=== PATIENT | female | born 1955 | race African-American/Black ===

== ENCOUNTER 2017-10-26 05:35 | Inpatient (IN) | payer OTHER ==
[2017-10-13 11:19] LABS: APPEARANCE,URINE CLOUDY; BILIRUBIN, URINE NEGATIVE (NEGATIVE); GLUCOSE, URINE (UA) NEGATIVE (NEGATIVE); KETONES,URINE NEGATIVE (NEGATIVE); LEUKOCYTE ESTERASE ,URINE 1+ (NEGATIVE); NITRITE,URINE NEGATIVE (NEGATIVE); PH,URINE 6.5 (4.5-8.0); PROTEIN,URINE NEGATIVE (NEGATIVE); UROBILINOGEN,URINE 1 MG/DL (0.0-1.0)
[2017-10-13 11:19] LABS: BASOPHILS % (AUTO) 0.8 % (0.0-2.0); HEMATOCRIT 44.2 % (37.0-47.0); LYMPHOCYTES % (AUTO) 50.4 % (20.0-45.0); MEAN CORPUSCULAR VOLUME 95 FL (80-99); MONOCYTES % (AUTO) 8.1 % (1.0-10.0); NEUTROPHILS % (AUTO) 38.8 % (45.0-75.0); PLATELET COUNT 377 K/UL (150-450); RED BLOOD COUNT 4.68 M/UL (4.20-5.40); RED CELL DISTRIBUTION WIDTH 13.1 % (11.6-14.8); WHITE BLOOD COUNT 5.5 K/UL (4.8-10.8)
[2017-10-13 11:20] LABS: COLOR,URINE YELLOW
[2017-10-13 11:33] LABS: INR 0.9 (0.9-1.1)
[2017-10-13 12:03] LABS: ALANINE AMINOTRANSFERASE 51 U/L (12-78); ALBUMIN 3.6 G/DL (3.4-5.0); ALBUMIN/GLOBULIN RATIO 0.9 (1.0-2.7); ALKALINE PHOSPHATASE 116 U/L (46-116); ANION GAP 7 mmol/L (5-15); ASPARTATE AMINO TRANSFERASE 35 U/L (15-37); BILIRUBIN,TOTAL 0.3 MG/DL (0.2-1.0); BLOOD UREA NITROGEN 10 mg/dL (7-18); CALCIUM 9.2 MG/DL (8.5-10.1); CARBON DIOXIDE 29 MMOL/L (21-32); CHLORIDE 104 MMOL/L (98-107); CREATININE 0.9 MG/DL (0.55-1.30); POTASSIUM 4.4 MMOL/L (3.5-5.1); SODIUM 140 MMOL/L (136-145)
--- NOTE | 2017-10-13 16:40 | Diagnostic Imaging Report ---
Indication: Dyspnea Comparison: None 2 views of the chest obtained. Findings: Cardiomediastinal silhouette and pulmonary vascularity are within normal limits for age. The diaphragmatic contour is smooth and costophrenic angles are sharp. No pleural effusions are identified. The bones are osteopenic. Impression: No acute disease
[2017-10-26] VITALS (18 sets, daily range): BP systolic 135–164; BP diastolic 76–98
[~2017-10-26] VITALS: Ht 180.3 cm; Wt 113.4 kg
[~2017-10-26 05:35] MED LIST: CLONIDINE HCL0.1 MG PO; CYCLOBENZAPRINE10 MG ORAL; FUROSEMIDE20 M1 ORAL; LEVOBUNOLOL HCL5 M1 BOTH EYES; LUMIGAN2.5 ML BOTH EYES; NORCO 10-325 T1 EACH ORAL; TRUSOPT10 ML BOTH EYES; Vit D PO
[2017-10-26] MEDS ORDERED: ceFAZolin sod 2 GM in D5W 110 ML IVPB ONE (07:00)
[2017-10-26] MEDS ORDERED: Thrombin 5000 units TOPIC ONE (07:01)
[2017-10-26] MEDS ORDERED: Vancomycin 1gm inj IVPB ONE (07:02)
[2017-10-26] MEDS ORDERED: Lidocaine 1% 10mg/ml/EPI 0.01mg/ml 50ml INJ ONE (07:03)
[2017-10-26] MEDS ORDERED: Bupivacaine 0.5% Inj 30 ml vial INJ ONE (07:03)
[2017-10-26] MEDS ORDERED: Thrombin 5000 units spray kit TOPIC ONE ×2 (07:04→10:46)
[2017-10-26] MEDS ORDERED: Gelfoam Absorbable 1gm powder pkt TOPIC ONE ×2 (07:04→10:46)
[2017-10-26] MEDS ORDERED: Bacitracin 50000 Units Vial ONE (07:04)
[2017-10-26] MEDS ORDERED: LR 1000ml 1,000 ML IVLG SCH (07:09)
--- NOTE | 2017-10-26 07:11 | Anethesia Preoperative Eval ---
Anesthesia Pre-op PMH/ROS General Date of Evaluation: Oct 26, 2017 Time of Evaluation: 08:01 Anesthesiologist: Graham ASA Score: ASA 3 Mallampati Score Class I : Soft palate, uvula, fauces, pillars visible Class II: Soft palate, uvula, fauces visible Class III: Soft palate, base of uvula visible Class IV: Only hard plate visible Mallampati Classification: Class III Surgeon: Wilbur Diagnosis: Back Pain Surgical Procedure: Posterior L3-S1 Lamiotomy, Foraminotomy Anesthesia History: none Social History: current smoker Family History: no anesthesia problems Allergies: Coded Allergies: DOXYCYCLINE (Verified Allergy, Intermediate, hives, 10/25/17) PENICILLINS (Verified Allergy, Intermediate, hives; ringing of the ears, ) Medications: see eMAR Past Medical History Cardiovascular: Reports: HTN, other - HL Gastrointestinal/Genitourinary: Reports: other - Hemorrhoids HEENT: Reports: glaucoma Other: obesity - BMI 37 PSxH Narrative: C/S X4 Anesthesia Pre-op Phys. Exam Physician Exam Last Vital Signs Date Time Temp Pulse Resp B/P (MAP) Pulse Ox O2 Delivery O2 Flow Rate FiO2 10/26/17 05:59 98.9 90 20 144/90 98 Room Air Constitutional: NAD Neurologic: CN 2-12 intact Cardiovascular: RRR Respiratory: CTA Gastrointestinal: S/NT/ND Airway Exam Mallampati Score: Class III MO: limited ROM: full Teeth: intact Anesthesia Pre-op A/P Risk Assessment & Plan Assessment: ASA 3 Plan: GA, BIS, GlideScope Go Status Change Before Surgery: No Pre-Antibiotics Dru Grams Ancef IV Given Within 1 Hr of Incision: Yes Time Given: 08:21 Zaheer Stevenson MD Oct 26, 2017 07:11
[2017-10-26] MEDS ORDERED: LORazepam Inj 2mg/ml 1ml IV PRN (07:15)
[2017-10-26] MEDS ORDERED: Ketorolac 30mg Inj IV PRN (07:15)
[2017-10-26] MEDS ORDERED: Labetalol 5mg/ml 20ml vial IV PRN (07:15)
[2017-10-26] MEDS ORDERED: Norco 5mg/325mg tab ORAL PRN ×2 (07:15→08:45)
[2017-10-26] MEDS ORDERED: Midazolam 2mg/2ml Inj IVP PRN (07:15)
[2017-10-26] MEDS ORDERED: DiphenhydrAMINE 50mg/ml Inj IVP PRN (07:15)
[2017-10-26] MEDS ORDERED: HYDROcodone/Acetamin 7.5/325 tab ORAL PRN ×3 (07:15→08:45)
[2017-10-26] MEDS ORDERED: Ketorolac 60mg Inj IV PRN (07:15)
[2017-10-26] MEDS ORDERED: Hydromorphone 0.5mg/0.5ml inj IVP PRN (07:15)
[2017-10-26] MEDS ORDERED: fentaNYL 100 mcg/2 mL IV PRN (07:15)
[2017-10-26] MEDS ORDERED: Atropine Inj 1mg/10ml Syr IV PRN (07:15)
[2017-10-26] MEDS ORDERED: oxyCODONE HCL/Acetaminophen 5/325mg ORAL PRN (07:15)
[2017-10-26] MEDS ORDERED: Sodium Chloride 10ml vial INJ ONE (08:00)
[2017-10-26] MEDS ORDERED: Midazolam 2mg/2ml Inj ONE (08:00)
[2017-10-26] MEDS ORDERED: Zemuron 50mg/5ml Inj IV ONE (08:00)
[2017-10-26] MEDS ORDERED: Sterile Water For Irrig 2000ml IRRIG ONE (08:00)
[2017-10-26] MEDS ORDERED: Lidocaine 1% MPF 10mg/ml 5ml ONE (08:00)
[2017-10-26] MEDS ORDERED: Propofol 1,000mg/ 100ml btl IV ONE (08:00)
[2017-10-26] MEDS ORDERED: Acetaminophen (Non formulary) 100 ML IV ONE (08:00)
[2017-10-26] MEDS ORDERED: NS Irrig 1000ml ONE (08:00)
[2017-10-26] MEDS ORDERED: Dexamethasone 4mg/ml vial ONE (08:00)
[2017-10-26] MEDS ORDERED: LR 1000ml ONE (08:00)
--- NOTE | 2017-10-26 08:34 | Pre-Procedure Note/Attestation ---
Pre-Procedure Note/Attestation Complete Prior to Procedure Procedure Narrative: L3-S1 laminoforaminotomies Indications for Procedure Pre-Operative Diagnosis: L3-S1 stenosis Attestation I attest that I discussed the nature of the procedure; its benefits; risks and complications; and alternatives (and the risks and benefits of such alternatives ), prior to the procedure, with the patient (or the patient's legal personal banking representative). I attest that, if there was a reasonable possibility of needing a blood transfusion, the patient (or the patient's legal personal banking representative) was given the [facility] standardized written summary, pursuant to the James Celestino Blood Safety Act ([place] Health and Safety Code # 1645, as amended). I attest that I re-evaluated the patient just prior to the surgery and that there has been no change in the patient's H&P, except as documented below: EMANUEL MOSQUERA Oct 26, 2017 08:34
--- NOTE | 2017-10-26 08:36 | Brief Operative Note ---
Immediate Post Operative Note Operative Note Pre-op Diagnosis: L3-S1 stenosis Procedure: L3-S1 laminoforaminotomy Post-op Diagnosis: same as pre-op Findings: consistent w/pre-op dx studies Surgeon: sofiya Baggagemaster: damion MANNING Anesthesiologist: Zaheer Soria Anesthesia: general Specimen: yes - lamina Complications: none Condition: stable Fluids: 1L LR Estimated Blood Loss: volume - 150 Drains: hemovac Implant(s) used?: No EMANUEL MOSQUERA Oct 26, 2017 08:36
[2017-10-26] MEDS ORDERED: traMADol 50mg tab ORAL PRN (08:45)
[2017-10-26] MEDS ORDERED: Milk of Magnesia 30ml Ud ORAL PRN (08:45)
[2017-10-26] MEDS ORDERED: HYDROmorphone 1mg/ml Carpuject SUBQ PRN (08:45)
[2017-10-26] MEDS ORDERED: Naloxone 0.4mg/ml Inj IVP PRN (08:45)
--- NOTE | 2017-10-26 09:23 | Immediate Post-Op Evaluation ---
Immediate Post-Op Evalulation Immediate Post-Op Evalulation Procedure: Posterior L3-S1 Lamiotomy, Foraminotomy Date of Evaluation: Oct 26, 2017 Time of Evaluation: 11:58 IV Fluids: 1000 LR Blood Products: 0 Estimated Blood Loss: 150 Urinary Output: 250 Blood Pressure Systolic: 155 Blood Pressure Diastolic: 96 Pulse Rate: 92 Respiratory Rate: 16 O2 Sat by Pulse Oximetry: 100 Temperature (Fahrenheit): 97.2 Pain Score (1-10): 3 Nausea: No Vomiting: No Complications 0 Patient Status: awake, reacts, patent, extubated, none Hydration Status: adequate Dru Grams Ancef IV Given Within 1 Hr of Incision: Yes Time Given: 08:21 Zaheer Stevenson MD Oct 26, 2017 09:23
--- NOTE | 2017-10-26 10:52 | Diagnostic Imaging Report ---
Indication: Back pain Technique: Intraoperative images Comparison: none Findings: Single lateral localizer image demonstrates surgical tool posterior to what is presumably the L4-5 disc Impression: Intraoperative imaging, as described
[2017-10-26] MEDS: D5 1/2NS 1,000 ML IV SCH (15:44)
[2017-10-26] MEDS: ceFAZolin sod 1 GM in D5W 55 ML IV SCH (17:39)
[2017-10-26] MEDS ORDERED: HYDROcodone/Acetamin 10/325 tab ORAL PRN (18:00)
[2017-10-26] MEDS ORDERED: Docusate 100mg cap ORAL SCH (18:00)
[2017-10-26] MEDS ORDERED: Chloraseptic Spray 20mL Bottle ORAL PRN (18:00)
[2017-10-26] MEDS ORDERED: HYDROcodone/Acetamin 10/325 tab ORAL ONE (19:00)
[2017-10-26] MEDS: Docusate 100mg/10ml Liq NG SCH (20:10)
[2017-10-26] MEDS: Latanoprost 0.005% Opth 2.5ml Soln BOTH EYES SCH (21:07)
[2017-10-27] MEDS: ceFAZolin sod 1 GM in D5W 55 ML IV SCH ×2 (00:04→08:11)
[2017-10-27] MEDS: D5 1/2NS 1,000 ML IV SCH ×3 (00:04→19:33)
[2017-10-27] MEDS: HYDROcodone/Acetamin 10/325 tab ORAL PRN (00:22)
[2017-10-27 00:56] VITALS: BP 143/84
[2017-10-27 04:33] VITALS: BP 136/73
[2017-10-27 08:00] VITALS: BP 118/67
[2017-10-27] MEDS: HYDROmorphone 1mg/ml Carpuject SUBQ PRN ×3 (08:17→19:39)
--- NOTE | 2017-10-27 08:57 | Orthopedic Spine Progress Note ---
Ortho Spine - Progress Note Subjective Symptoms: c/o post-op back pain, improved - as compared to pre-op Objective Vital Signs: Last 24 Hour Vital Signs Date Time Temp Pulse Resp B/P (MAP) Pulse Ox O2 Delivery O2 Flow Rate FiO2 10/27/17 08:00 97.8 87 18 118/67 98 10/27/17 05:28 83 19 99 Nasal 35 10/27/17 04:33 98.2 89 20 136/73 98 Room Air 10/27/17 03:28 72 22 100 Nasal 35 10/27/17 01:28 86 16 98 Nasal 35 10/27/17 00:56 97.1 81 20 143/84 98 10/26/17 23:11 74 14 99 Nasal 35 10/26/17 21:45 78 12 100 Nasal 35 10/26/17 20:00 96.6 86 19 152/92 97 10/26/17 17:00 98.0 81 20 138/76 98 10/26/17 15:00 97.7 82 18 135/88 99 Room Air 10/26/17 14:05 97.0 89 17 159/95 97 Room Air 10/26/17 13:34 98.3 10/26/17 13:25 98.3 85 13 145/93 100 Nasal Cannula 3.0 10/26/17 13:10 90 23 153/90 100 Nasal Cannula 3.0 10/26/17 13:00 89 18 135/92 100 Nasal Cannula 3.0 10/26/17 12:50 90 14 135/92 100 Simple Mask 6.0 10/26/17 12:40 93 16 146/84 100 Simple Mask 6.0 10/26/17 12:35 91 14 164/78 100 Simple Mask 6.0 10/26/17 12:25 92 19 145/81 100 Simple Mask 6.0 10/26/17 12:15 91 13 147/86 100 Simple Mask 6.0 10/26/17 12:05 92 15 157/92 100 Simple Mask 6.0 10/26/17 11:57 96 18 162/98 100 Simple Mask 6.0 10/26/17 11:52 97 20 153/91 100 Simple Mask 6.0 10/26/17 11:47 97.2 91 20 155/96 100 Simple Mask 6.0 10/26/17 11:46 92 16 100 I&O: Intake and Output 10/26/17 10/27/17 19:00 07:00 Intake Total 2100 ml 2440 ml Output Total 650 ml Balance 1450 ml 2440 ml Intake Oral 600 ml 1440 ml IV Total 1500 ml 1000 ml Output Urine Total 500 ml Estimated Blood Loss 150 ml # Voids 1 4 Wound: clean Drains: hemovac Neuro Status: normal Assessment Procedure Performed: L3-S1 laminoforaminotomy Plan Plan: PT, pain management, d/c drain, discharge plan EMANUEL MOSQUERA Oct 27, 2017 08:57
--- NOTE | 2017-10-27 09:14 | 48 Hour Post Anesthesia Eval ---
Post Anesthesia Evaluation Procedure: Posterior L3-S1 Lamiotomy, Foraminotomy Date of Evaluation: Oct 27, 2017 Time of Evaluation: 06:28 Blood Pressure Systolic: 118 0: 67 Pulse Rate: 87 Respiratory Rate: 18 Temperature (Fahrenheit): 97.8 O2 Sat by Pulse Oximetry: 98 Airway: patent Nausea: No Vomiting: No Pain Intensity: 2 Hydration Status: adequate Cardiopulmonary Status: Stable Mental Status/LOC: patient returned to baseline Follow-up Care/Observations: 0 Post-Anesthesia Complications: 0 Follow-up care needed: N/A Zaheer Stevenson MD Oct 27, 2017 09:14
[2017-10-27] MEDS: Docusate 100mg/10ml Liq NG SCH ×2 (09:23→17:13)
[2017-10-27 12:00] VITALS: BP 135/77
[2017-10-27 16:00] VITALS: BP 120/70
[2017-10-27] MEDS ORDERED: HYDROcodone/Acetamin 10/325 tab ORAL ONE (17:00)
[2017-10-27 20:00] VITALS: BP 154/83
[2017-10-27] MEDS: Latanoprost 0.005% Opth 2.5ml Soln BOTH EYES SCH (20:46)
--- NOTE | 2017-10-27 22:15 | Operative Note - Dictated ---
DATE OF OPERATION: 10/26/2017 SURGEON: Gene Bowles M.D. OYSTER FARMER: Rod Neal PA-C. ANESTHESIOLOGIST: Zaheer Stevenson M.D. ANESTHESIA TYPE: General endotracheal anesthesia. PREOPERATIVE DIAGNOSES: Spinal stenosis at L4-L5 primarily, but secondarily at L3-L4 and bilaterally along the neural foramen L5-S1. OPERATION PERFORMED: 1. Complete central laminectomy with bilateral laminectomies and medial facetectomies at L3, L4, and superior portion of L5, as well as bilateral hemilaminotomy at L5-S1 with medial facetectomy, and superior S1 resection. 2. Use of fluoroscopy. 3. Neurolysis bilaterally at L5-S1. 4. Use of operating microscope. 5. Neurodiagnostic monitoring. 6. Use of fluoroscopy for localization purposes. ESTIMATED BLOOD LOSS: 150 mL. FLUIDS: One liter. COMPLICATIONS: None. FINDINGS: Extensive epidural lipomatosis at L4-L5 and to a lesser extent L3-L4 with severe bony stenosis at L5-S1. INDICATIONS: The patient is a very pleasant woman, who I have been managing for quite some time conservatively. Her pain has finally gone to the point that she can no longer tolerate with bilateral radiculopathic findings. MRI confirmed [id number] spinal stenosis at L4-L5 and to a lesser extent at L3-L4 as well as bilateral foraminal stenosis at L5-S1. After having failed conservative care, surgical intervention was recommended and she elected to proceed with surgery. RISKS NOTES: The patient was explained in detail risks and benefits of surgery to include, but not be limited to those of bleeding, damage to nerves, vessels, tendons, anesthetic risk, allergic reaction, aspiration, and possibly . The patient elected to proceed. OPERATIVE PROCEDURE IN DETAIL: The patient was taken to the operating suite. After general endotracheal anesthesia was obtained, Kendrick catheter was placed. The back was prepped and draped in the usual sterile fashion after she was turned prone onto a radiolucent table. All bony prominences were well padded. A midline incision was carried out from L3 through S1. Subperiosteal dissection was carried out. The L4-L5 level was once again reconfirmed fluoroscopically. At this point, with the use of a rongeur, a midline laminectomy was performed by resecting the spinous processes of L3 and L4 as well as leading edge of L5. At this point, under microscopic visualization, hemilaminectomies were performed at L4 bilaterally, L3 bilaterally, as well as the superior portion of L5. This was performed using standard technique by drilling out the lamina with high-speed drill as well as use of Kerrison rongeurs, as well as pituitaries and curettes. A wide and radical decompression was performed from pedicle to pedicle from L3, L4, and L5. At this point, copious irrigation was obtained. FloSeal was applied and this area was packed off. Attention was then turned to the L5-S1 level and then a left-sided hemilaminectomy of L5 and superior portion of S1 as well as medial facetectomy was performed in the similar fashion using high-speed drill, curettes, Kerrison, and rongeurs. A 50% medial facetectomy was performed on the left side. The leading edge of the superior articular process was also resected. Neuroforamen was probed and noted to be patent at this point. Copious irrigation was performed. This procedure was then identically reproduced on the right side at L5-S1. Once satisfied with the decompression at L3, L4, L5, and S1 neuroforamen, decision was made to close. FloSeal was applied to all bony edges as well as bone wax. Meticulous hemostasis was achieved at this juncture. Decision was made to close. Fascia was repaired using #1 Vicryl and subcutaneous closure using 2-0 Vicryl. Dermabond and sterile dressing was applied. The patient was then turned onto her back, awakened, extubated, and transferred to recovery room in stable condition. Gene Bowles M.D. DR: DALE JOB#: [id number] CC: [email or web address]
[2017-10-28] VITALS (8 sets, daily range): BP systolic 119–169; BP diastolic 74–101
[2017-10-28] MEDS: HYDROmorphone 1mg/ml Carpuject SUBQ PRN ×3 (00:14→09:47)
[2017-10-28] MEDS: D5 1/2NS 1,000 ML IV SCH (06:01)
--- NOTE | 2017-10-28 06:15 | Consultation ---
DATE OF CONSULTATION: 10/26/2017 CONSULTING PHYSICIAN: Eliazar Gill M.D. REFERRING PHYSICIAN: Gene Bowles M.D. REASON FOR CONSULTATION: Acute pain consult. HISTORY OF PRESENT ILLNESS: Dear Dr. Gene Bowles: Thank you kindly for consulting me to evaluate and render an opinion as to how to proceed in the management of the patient's acute postoperative lumbar spine pain after a lumbar spine instrumentation surgery today. 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 She injured her lumbar spine and required lumbar spine instrumentation surgery today. The patient complains significant discomfort postoperatively and you consulted me for acute pain consultation. I saw the patient at bedside with her daughter. I discussed the case with the nurse RN, Judith. I spent over 75 minutes in consultation with an additional 30 minutes in medical record review. Multiple records were reviewed from today's date of surgery including utilization review and surgical authorization by [employer], authorizing surgery as certified. Preoperative history and physical by Dr. Diaz on 10/13/2017, along with diagnostic testing of 12-lead EKG, laboratory studies, and chest x-ray. Multiple records were reviewed from today's date of surgery at [facility] including records from intraoperative anesthesiologist Dr. Stevenson, postoperative spine surgical orders, postoperative operative report by Dr. Bowles, consent for surgical treatment, consent for anesthesia, consent for blood products, medication administration record, medication reconciliation order form, PACU record, PACU orders, anesthesia record, pre and post anesthesia evaluation record, surgical invasive procedure check list, preoperative nurse plan of care, guidelines for prophylactic antibiotics, guidelines for DVT prophylaxis, initial nursing assessment, 24-hour medical/surgical flow sheet. Multiple records were also reviewed from the pharmacy and emergency department. PAST MEDICAL HISTORY: 1. Acute postoperative lumbar spine pain, status post lumbar spine instrumentation surgery by Dr. Gene Bowles, September 2017. 2. Work-related injury. 3. Obesity. 4. Glaucoma. 5. Hypertension. 6. Obstructive sleep apnea, on home CPAP. PAST SURGICAL HISTORY: section x4. MEDICATIONS AT HOME: Green River 10/325 mg 1 tablet three times a day, Flexeril 10 mg b.i.d., glaucoma eye drops, clonidine, Lasix, baby aspirin 81 mg daily, and a topical pain cream, ordered by the surgeon, Dr. Bowles. ALLERGIES: Penicillin and Vibramycin. REVIEW OF SYSTEMS: Per Dr. Diaz. FAMILY HISTORY: Obesity and hypertension. SOCIAL HISTORY: The patient is accompanied at the bedside by her daughter. She lives at home with her . She drinks alcohol rarely. She denies marijuana usage. She smokes tobacco rarely. PHYSICAL EXAMINATION: GENERAL: Age 61. Height 180 cm. Weight 261 pounds. Body mass index 35. VITAL SIGNS: Afebrile. Pain level 7/10 on the visual analog pain scale. Pulse 82, respirations 18, blood pressure 135/88, and oxygen saturation 99%. HEENT: Shows nasal cannula oxygen in place. No Loza's palsy. No Claudette syndrome. No nuchal rigidity. Extraocular muscles intact. Pupils are equal, round, and reactive to light and accommodative. Alert and ordered x3. Moving all extremities x4. 5/5 dorsiflexion and 5/5 plantar flexion in bilateral lower extremities. NECK: Short neck. CHEST: Barrel chested. No accessory muscle use noted. Respiratory rate within normal limits. The patient appears non-toxic. Breathing comfortably. HEART: Decreased heart sounds secondary to obesity. Positive S4. Normal S1, S2. No S3 noted. ABDOMEN: Massively obese. Positive pannus. Positive bowel sounds. BACK: Lumbar spine pain with log-rolling. Hemovac drain in place. Dressing appears clean and dry. BREASTS: Deferred. GENITOURINARY: Deferred. NEUROLOGIC: Detailed neurologic exam per Dr. Gene Bowles. DIAGNOSTIC TESTING: On 10/13/2017 shows sodium 140, potassium 4.4, chloride 104, bicarb 29, BUN 10, creatinine 0.9, glucose 106, calcium 9.2, total bilirubin 0.3, AST 35, ALT 51, total protein 7.8, albumin 3.6, and alkaline phosphatase 116. White count 6, hematocrit 44, and platelets 377,000. INR 0.9 and PTT 34. Urinalysis with leukocyte esterase positive 1+. A 12-lead EKG shows normal sinus rhythm, ventricular rate 86, no evidence for acute cardiac ischemia. Preoperative chest x-ray shows no acute disease. IMPRESSION: 1. Acute postoperative lumbar spine pain, status post lumbar spine instrumentation surgery by Dr. Gene Bowles September 2017. 2. Work-related injury. 3. Obesity. 4. Glaucoma. 5. Hypertension. 6. Obstructive sleep apnea, on home CPAP. TREATMENT AND RECOMMENDATIONS: I have discussed with the hospital pharmacist and the nurse to start the following analgesic plan to help with the patient's pain control. The patient uses Green River chronically at a dose of 10/325. The patient will contact the surgeon's postal delivery officer, Nory, to have a refill prescription of Green River 10s and Flexeril mailed to her home, per recent custom. The patient does have a small supply of Green River 5 at home already. The patient states that she uses Flexeril typically twice a day for chronic back and spasms. I have increased the frequency to Flexeril 10 mg every 8 hours p.r.n. for muscle spasm. The patient does have obstructive sleep apnea and is morbidly obese. She uses CPAP device at home, but did not bring her home unit. We have asked Respiratory Therapy to visit with the patient to set up a CPAP device here in the hospital. A consideration should be made for continuous pulse oximetry as this patient will be on potent opioid narcotics after her spine surgery. She has already received subcutaneous Dilaudid without any untoward side effects. I have reduced the dosing to 1 mg subcutaneously of Dilaudid every three hours p.r.n. for severe pain. The patient has tolerated Green River and I have ordered Green River 10/325 with a significantly increased frequency of every three hours p.r.n. for moderate pain. I have restarted the patient's glaucoma medicines. I will empirically place the patient on Protonix 40 mg nightly for GI ulcer prophylaxis along with the p.r.n. dose of Mylanta 30 mL q.6 h. in case of any GERD symptom exacerbation. In case the patient has any nausea complaints, I have ordered Zofran 4 mg intravenously every 4 hours as a first-line agent, with a second-line backup agent of Phenergan suppository 12.5 mg q.12 h. p.r.n. To help with bowel regularity, I will place the patient on Colace [address] Bowles has ordered a p.r.n. dose of milk of magnesia as a rescue p.r.n. laxative. With the patient's massive obesity, I have ordered incentive spirometer to encourage good pulmonary toilet. The patient has good social support at the bedside with her daughter and the patient will return home to her and daughter when she is able to ambulate adequately with Physical Therapy as well as when the drainage from her Hemovac output indwelling lumbar spine drain catheter reduces appropriately. I will defer DVT prophylaxis to the surgeon. Eliazar Gill M.D. DR: FRANKLIN JOB#: [id number] CC:
[2017-10-28] MEDS: Cyclobenzaprine 10mg Tab ORAL PRN ×2 (07:54→18:01)
[2017-10-28] MEDS: HYDROcodone/Acetamin 10/325 tab ORAL PRN ×4 (07:55→20:23)
[2017-10-28] MEDS: Docusate 100mg/10ml Liq NG SCH ×2 (08:47→18:00)
--- NOTE | 2017-10-28 10:00 | Orthopedic Spine Progress Note ---
Ortho Spine - Progress Note Subjective Symptoms: c/o post-op back pain, improved - as compared to pre-op Objective Vital Signs: Last 24 Hour Vital Signs Date Time Temp Pulse Resp B/P (MAP) Pulse Ox O2 Delivery O2 Flow Rate FiO2 10/28/17 08:53 97.9 10/28/17 08:53 97.9 10/28/17 08:00 98.4 90 20 148/94 98 10/28/17 05:38 82 23 98 Nasal 35 10/28/17 04:00 97.9 91 22 158/94 99 10/28/17 03:16 82 23 98 Nasal 35 10/28/17 01:45 132/80 10/28/17 01:30 77 23 98 Nasal 35 10/28/17 01:05 157/90 10/28/17 00:26 169/101 10/28/17 00:00 97.9 87 26 169/101 100 10/27/17 23:50 78 19 99 Nasal 35 10/27/17 21:54 83 20 99 Nasal 35 10/27/17 20:00 98.6 88 19 154/83 99 10/27/17 17:54 97.6 10/27/17 16:00 97.6 88 18 120/70 98 10/27/17 16:00 98 Room Air 10/27/17 15:28 97.6 10/27/17 12:00 98 Room Air 10/27/17 12:00 97.6 84 18 135/77 98 I&O: Intake and Output 10/27/17 10/28/17 19:00 07:00 Intake Total 1905 ml 1620 ml Output Total 20 ml Balance 1885 ml 1620 ml Intake Oral 850 ml 420 ml IV Total 1055 ml 1200 ml Drainage Total 20 ml # Voids 3 4 Wound: clean, intact Drains: none Neuro Status: normal Assessment Procedure Performed: L3-S1 laminoforaminotomy Plan Plan: PT, pain management, discharge plan EMANUEL MOSQUERA Oct 28, 2017 10:00
[2017-10-28] MEDS: Latanoprost 0.005% Opth 2.5ml Soln BOTH EYES SCH (20:22)
[2017-10-28] MEDS: Hydromorphone 0.5mg/0.5ml inj SUBQ PRN ×2 (22:49→22:50)
[2017-10-29] VITALS: BP 130/82
[2017-10-29] MEDS: HYDROcodone/Acetamin 10/325 tab ORAL PRN ×3 (03:22→13:59)
[2017-10-29 04:00] VITALS: BP 153/86
[2017-10-29] MEDS: Cyclobenzaprine 10mg Tab ORAL PRN ×2 (04:33→14:00)
[2017-10-29 08:00] VITALS: BP 148/88
[2017-10-29] MEDS: Docusate 100mg/10ml Liq NG SCH (09:56)
[2017-10-29] MEDS: Hydromorphone 0.5mg/0.5ml inj SUBQ PRN (10:46)
--- NOTE | 2017-10-29 12:54 | Progress Note ---
DATE: 10/27/2017 ACUTE PAIN MANAGEMENT PHYSICIAN PROGRESS NOTE VITAL SIGNS: Within normal limits, afebrile, pulse 84, respirations 18, blood pressure 135/77 and oxygen saturation 98% on room air. LABORATORY STUDIES: No interval laboratory studies. MEDICATIONS: Medication administration record reviewed. Medications include IV fluids, Colace, Xalatan, Protonix, eyedrops. Pain medications include Tylenol, milk of magnesia, Benadryl, Catapres, Chloraseptic, Fioricet, Dilaudid, Flexeril, Mylanta, Zofran, Phenergan and Sweetwater. I saw the patient at the bedside. After discussion with the nurse RN, Tracy and with surgeon, Dr. Bowles. I also spoke with the physical therapist, Lencho. The patient has ambulated over 50 feet today. She walked three times. The surgeon, Dr. Bowles removed her indwelling lumbar spine drain catheter earlier this morning. The patient does feel some heaviness in her lumbar spine, although she has been somewhat stoic and requesting pain medications. She has been alternating oral hydrocodone along with the subcutaneous Dilaudid injections. In combination, these agents seemed to be quite effective making her pain levels manageable. I will continue the current analgesic regimen. The patient does state that she already has a supply of Sweetwater at home and we will contact her preoperative doctor for a refill prescription for hydrocodone. I did demonstrate proper use of incentive spirometer to this obese patient. She is performing good effort using the spirometer. A front wheel walker has been left in the room to encourage ambulation. With her obesity, she is at significant risk for deep venous thrombosis and pulmonary embolism complications. I would recommend that she ambulates as much as possible, and use the sequential compression pneumatic devices for DVT prophylaxis when in-bed. The patient has no nausea symptoms. She denies chest pain or shortness of breath. She will continue to increase her ambulation as tolerated with hopeful discharge in the next 36 hours when cleared by the surgeon, Dr. Bowles. Eliazar Gill M.D. DR: BHAKTI JOB#: [id number] CC:
--- NOTE | 2017-10-29 12:56 | Progress Note ---
DATE: 10/28/2017 ACUTE PAIN MANAGEMENT PHYSICIAN PROGRESS NOTE MEDICATIONS: Medication administration record reviewed. Medications include Phenergan suppository, Chloraseptic, Protonix, milk of magnesia, eyedrops, Dilaudid, Henderson, Colace, Benadryl, Flexeril, Catapres, Mylanta, Fioricet, and Tylenol. LABORATORY STUDIES: No interval laboratory studies. PHYSICAL EXAMINATION: VITAL SIGNS: Within normal limits. Blood pressure 132/80, afebrile, pulse 91, respirations 23, and oxygen saturation 98%. I saw the patient at the bedside with the surgeon. I discussed the case with the nurse. At 114 kilograms, this morbidly obese woman still is having difficulty moving in and out of bed. I saw the patient at the bedside with the surgeon, Dr. Gene Bowles, who examined the lumbar spine wound. The patient did state that ever since her Hemovac indwelling lumbar spine drain catheter was removed [address] Bowles, she felt more letharginess with increase in ambulation. The surgeon, Dr. Bowles, evaluated the lumbar spine dressing and wound. The surgeon was extremely pleased with the appearance of the very dry dressing and clean lumbar wound. The surgeon thought no evidence for erythema or exudate or abnormal postoperative surgical swelling. The patient is neurologically intact, moving all extremities x4. The patient is able to walk in the hallways. The surgeon did request a front-wheel walker and a bedside commode for home usage. The patient is advancing her diet. The current analgesic regimen seems adequate with the current dosing of oral hydrocodone effective. The patient is also using p.r.n. doses of breakthrough Dilaudid and Flexeril periodically. Dr. Bowles recommended the patient continue another 24 hours in the hospital to increase her strength and training with physical therapy before she will likely discharge to home tomorrow. Eliazar Gill M.D. DR: BJ JOB#: [id number] CC:
[2017-10-29] MEDS ORDERED: Tubing IV Secondary IV ONE (17:34)
[2017-10-29] MEDS ORDERED: D5 1/2NS 1000ml IV ONE (17:34)
--- NOTE | 2017-10-29 20:30 | Progress Note ---
DATE: 10/29/2017 ACUTE PAIN MANAGEMENT PHYSICIAN PROGRESS NOTE OBJECTIVE: VITAL SIGNS: Pain level 8/10 on the visual analog pain scale, localized to the right thigh spasms. Temperature afebrile, pulse 93, respirations 18, blood pressure 148/88, and oxygen saturation 97% on room air. LABORATORY STUDIES: No interval laboratory studies. Medication administration record reviewed. MEDICATIONS: Include Colace, eye drops, and Protonix. P.r.n. medications include Narcan, Tylenol, milk of magnesia, Benadryl, Catapres, Chloraseptic spray, Fioricet, Flexeril, Mylanta, Zofran, Phenergan, [place], and Dilaudid. I saw the patient at the bedside with the charge nurse, FARIDA Amos and the nurse RN, Cr. The patient was complaining of severe right thigh spasms throughout much of the night. She was trialed on Flexeril, which was not helpful. I will switch her muscle relaxant from Flexeril to Soma and we will leave a prescription for outpatient usage. The patient has been fairly stingy with her pain medications and I suspect that she has been under medicating herself with pain medicines, which is contributing to her increased pain symptoms. I did encourage the patient to be more generous using frequent doses of the [place] as needed. Dr. Bowles was alerted to the patient's complaint and recommended a stat venous Doppler of lower extremity to rule out DVT. I spoke with the electro mechanical solar technician, who performed the procedure and felt that there is no visual evidence for deep venous thrombosis. I will defer discharge planning to the surgeon, Dr. Bowles. Otherwise, the patient denies any chest pain or shortness of breath. Her vital signs are stable. Wound dressing is clean and dry. Eliazar Gill M.D. DR: BOLIVAR JOB#: [id number] CC:
--- NOTE | 2017-11-01 09:36 | Discharge Summary ---
Discharge Summary Hospital Course Date of Admission Oct 26, 2017 at 05:35 Date of Discharge Oct 29, 2017 at 15:20 Admitting Diagnosis spinal stenosis Reason for Hospitalization: elective surgery HPI Tahira Bravo is a 61 year old female who was admitted on Oct 26, 2017 at 05:35 for Spinal Stenosis L4-5 and elective surgery Consultations dr Gill - pain specialist Procedures s/p 10/26/[address] Bowles 1. Complete central laminectomy with bilateral laminectomies and medial facetectomies at L3, L4, and superior portion of L5, as well as bilateral hemilaminotomy at L5-S1 with medial facetectomy, and superior S1 resection. 2. Use of fluoroscopy. 3. Neurolysis bilaterally at L5-S1. 4. Use of operating microscope. 5. Neurodiagnostic monitoring. 6. Use of fluoroscopy for localization purposes. Hospital Course course of recovery uneventful neurovascular intact pain management pain specialist followed pain controlled Venous Duplex BLE - no evidence of acute DVT dressing C/D/I PT eval and Rx, ambulated IS at the bedside when in bed DVT, GI prophylaxis provided voided tolerated diet eye gtt continue BP stable with current regimen BiPAP at HS stable for dc outpt fup with surgeon as advised by surgeon FINAL DIAGNOSIS Spinal stenosis (at L4-L5 primarily, but secondarily at L3-L4 and bilaterally along the neural foramen L5-S1). s/p 10/26- L3-S1 laminoforaminotomy Work-related injury. Obesity. Glaucoma. Hypertension. Obstructive sleep apnea, on home CPAP. Discharge Medications Continued Medications: Bimatoprost (Lumigan) 2.5 Ml Drops 1 DROP BOTH EYES HS, #2.5 ML 0 Refills Clonidine Hcl (Clonidine Hcl) 0.1 Mg Tablet 0.1 MG PO Q12HR, TAB Dorzolamide Hcl* (Trusopt*) 10 Ml Drops 1 DROP BOTH EYES BID, #1 ML 0 Refills Furosemide* (Lasix*) 20 Mg Tablet 20 MG ORAL DAILY, TAB Hydrocodone Bit/Acetaminophen 10-325* ([place] 10-325*) 1 Each Tablet 1 TAB ORAL Q6H PRN for For Pain, #10 TAB 0 Refills PRN PAIN Levobunolol HCl (Levobunolol Hcl) 5 Ml Drops 1 DROP BOTH EYES BID, ML Discharge Condition Upon Discharge: stable Discharge Disposition Patient was discharged to Home (01) Discharge Diagnoses: Discharge Instructions Discharge Instructions Special Instructions I have been assigned to complete a D/C Summary on this account. I was not involved in the patient management Ivana Prakash NP ([place]) Nov 01, 2017 09:36
--- NOTE | 2017-11-02 11:38 | Diagnostic Imaging Report ---
APPROVED REPORT CPT Code: 82628 Present Symptoms Comments: Post Op Right leg pain RIGHT LEG: Venous imaging reveals a patent deep venous system. There is no evidence of thrombus within the femoral, popliteal or tibial segments. The greater saphenous vein is also within normal limits. Doppler indicates normal spontaneous flow within these segments.
== END 2017-10-29 15:20 | disposition home or self-care (01) | DRG 517 ==
LOC: SDSOVERFLO 05:35 → 3E 13:40
PROC: 01NB0ZZ Release Lumbar Nerve, Open Approach (ICD-10-PCS; principal; 2017-10-26 08:00)
DX: M48.061 Spinal stenosis, lumbar region without neurogenic claudication (principal); I10 Essential (primary) hypertension; M48.07 Spinal stenosis, lumbosacral region; M19.90 Unspecified osteoarthritis, unspecified site; H40.9 Unspecified glaucoma; Z88.0 Allergy status to penicillin; E66.9 Obesity, unspecified; F17.200 Nicotine dependence, unspecified, uncomplicated; G47.33 Obstructive sleep apnea (adult) (pediatric); X58.XXXS Exposure to other specified factors, sequela
CPT/HCPCS: 36415; 71046; 72020; 76001; 80053; 81001; 85025; 85610; 85730; 86850; 86900; 86901; 87081; 93971; 94003; 94150; 94660; J2250; J2405